=== PATIENT | female | born 1930 | race Caucasian/White ===

== ENCOUNTER → 2021-04-23 | Outpatient (CLI) | payer MEDICARE, OTHER ==
[~2021-04-23] MED LIST: ASPIR 8181 MG PO; BIOTIN2500 MCG PO; CENTRUM SILVER1 EAC4 PO; ESCITALOPRAM OXA5 MG PO; MACROBID 100 M100 M1 PO; NEURONTIN 100100 MG PO; OSCAL 500 + D TA1 EA PO; PRINIVIL5 MG PO; TRIAMTERENE-HC1 EACH PO; TYLENOL 500 MG500 MG PO
== END ==
LOC: EXRD 11:21
DX: E87.1 Hypo-osmolality and hyponatremia (principal)
CPT/HCPCS: 76775